=== PATIENT | male | born 1960 ===

== ENCOUNTER 2025-01-21 11:40 | Outpatient (AMB) | payer MEDICARE, MEDICAID, SELFPAY ==
--- NOTE | 2025-01-21 11:45 | MHC.OFFWIV ---
Intake Vital Signs 01/21/25 11:46 Weight 230 lb BP 116/80 Blood Pressure Location Lt brachial Position Sitting Respiration 18 Pulse 77 Pulse Source Pulse Oximeter Intake Visit Reasons: EP Left ear flush, rash on lower back It Intern Required: No Accompanied by: Self / Same As Patient Allergies No Known Allergies Allergy (Verified 01/21/25 11:52) Medication List - Last Reconciled 01/21/25 by Funmi Desouza NP dicloxacillin 250 mg PO Q6H 5 days furosemide 40 mg PO DAILY mupirocin 2% (Centany) 1 appl topical TID HPI HPI Comments History of Present Illness Details 64 y/o Male patient who presents to the walk in clinic with c/o Rash on his Coccyx region. He is new to the [facility] group - PCP at [facility]. He was admitted at [facility] for 5 days for what sounds like Newly CHF/COPD diagnoses (no Available Hospital notes for review). He noticed the Rash few days after discharge. Reports getting similar Rash every year at the same region - and usually resolves on its own. Denies Pain, itching or Burning. Pt also C/o Left Ear pain and feels blocked. [facility] Medical History (Updated 01/21/25 @ 14:23 by Funmi Desouza NP) Impacted cerumen of both ears Rash and nonspecific skin eruption Review of Systems Const All systems reviewed & are unremarkable except as noted in HPI and below Physical Exam Vital Signs: Last Vital Signs Pulse 77 01/21/25 11:46 Resp 18 01/21/25 11:46 BP 116/80 01/21/25 11:46 Const General: no acute distress Nutritional Appearance: obese morbidly obese Orientation/consciousness: patient oriented x3 HEENT Head: Yes normocephalic Ears: external ears normal and TM abnormal obstructed by cerumen bilateral General nose exam: Normal external nose present Face and sinus: Yes sinuses nontender GI Inspection: Yes obesity Skin Other: Rashes: rashes noted (See Image above. ) Neuro General: patient oriented x3 Office Procedures Cerumen Removal From which ear canal was the cerumen removed: bilateral Removal: irrigation Notes: patient tolerated procedure well [id number]-[id number] Irrigation/Lavage Assessment & Plan Assessment & Plan (1) Rash and nonspecific skin eruption: Code(s): R21 - Rash and other nonspecific skin eruption Plan: DDx's: Fungal vs Eczema vs Contact Dermatitis vs Shingles vs Impetigo. Pt was recently admitted in the hospital - Prob immune compromised Shingles r/o due to Negative pain/burning and presentation. Ordered Topical Abx and Oral Keep Area clean and dry. (2) Impacted cerumen of both ears: Code(s): H61.23 - Impacted cerumen, bilateral Plan: Ordered Cerumen Lavage on both Ears. B/L TMs intact and clean. Medications: New mupirocin 2% (Centany) 1 appl topical TID 22 grams 1RF R21 - Rash and other nonspecific skin eruption dicloxacillin 250 mg PO Q6H 20 caps 0RF 5 days R21 - Rash and other nonspecific skin eruption Coding Level of Care Code New Pt Level 4 (55746) Diagnoses Rash and nonspecific skin eruption R21 Impacted cerumen of both ears H61.23 CPT Codes Office Procedure - CPT: 53265-Iqi Irrigation/Lavage ([id number]) Time Spent (min) 20
[2025-01-21 11:46] VITALS: BP 116/80; PULSE 77; RESP 18
== END 2025-01-21 13:10 | disposition home or self-care (01) ==
PROVIDERS: Visit Provider Nurse Practitioner Family
DX: R21 Rash and other nonspecific skin eruption (principal); H61.23 Impacted cerumen, bilateral

== ENCOUNTER → 2025-01-21 11:40 | Outpatient (BNVA) | payer MEDICARE, MEDICAID, SELFPAY | PROVIDERS: Visit Provider Nurse Practitioner Family | DX: H61.23 Impacted cerumen, bilateral (principal); R21 Rash and other nonspecific skin eruption | CPT/HCPCS: 69209; 99202 ==